=== PATIENT | male | born 1980 | race African-American/Black ===

== ENCOUNTER 2020-04-23 03:00 | Emergency (ER) | payer MEDICAID, OTHER ==
[~2020-04-23] VITALS: Ht 170.2 cm; Wt 82.0 kg
[2020-04-23 03:02] VITALS: BP 136/91
== END 2020-04-23 03:21 | disposition left against medical advice (07) ==
LOC: ER 03:00
DX: Z53.21 Procedure and treatment not carried out due to patient leaving prior to being seen by health care provider (principal); R07.9 Chest pain, unspecified
CPT/HCPCS: 93005